=== PATIENT | female | born 1965 | race Caucasian/White ===

== ENCOUNTER → 2024-01-17 14:38 | Outpatient (REF) | payer OTHER, SELFPAY | LOC: HWRAD 14:38 | PROVIDERS: ATTENDING PHYSICIAN Family Medicine | DX: M25.562 Pain in left knee (principal) | CPT/HCPCS: 73564 ==

== ENCOUNTER → 2024-02-23 07:34 | Outpatient (REF) | payer OTHER, SELFPAY | LOC: MRI 07:34 | PROVIDERS: ATTENDING PHYSICIAN Family Medicine | DX: M19.90 Unspecified osteoarthritis, unspecified site (principal); M25.562 Pain in left knee; G89.29 Other chronic pain | CPT/HCPCS: 73721 ==

== ENCOUNTER → 2024-03-13 08:37 | Outpatient (REF) | payer OTHER, SELFPAY | LOC: HWRAD 08:37 | PROVIDERS: ATTENDING PHYSICIAN Student in an Organized Health Care Education/Training Program; FAMILY PHYSICIAN Physician Assistant Medical | DX: M75.82 Other shoulder lesions, left shoulder (principal); M79.641 Pain in right hand; Z13.820 Encounter for screening for osteoporosis; L40.9 Psoriasis, unspecified | CPT/HCPCS: 72202; 73120; 77080 ==